=== PATIENT | female | born 1985 ===

== ENCOUNTER 2018-12-31 05:47 | Day surgery (SDC) | payer MEDICARE ==
[~2018-12-31] VITALS: Ht 157.5 cm; Wt 47.0 kg
[~2018-12-31 05:47] MED LIST: ACET-1757 PO; AMLO-150 PO; AMLO10TA8 PO; CALC-112 PO; FOLI-17 PO; FOLI20CA PO; HYDR-3237 PO; HYDR-3341 PO; HYDR-3342 PO; LABE100T6 PO; LABE200T6 PO; LACT1CAP4 PO; LOSA100T14 PO; LOSA25TA25 PO; SEVE2.4P PO; THIA50TA4 PO
[2018-12-31] MEDS ORDERED: BUPIVACAINE/PF 0.5% ONE (06:56)
[2018-12-31] MEDS ORDERED: HEPARIN 1,000 UNITS/ML, 10ML ONE (06:56)
[2018-12-31] MEDS ORDERED: THROMBIN 20,000 UNIT VIAL TP ONE (06:56)
[2018-12-31] MEDS ORDERED: PROTAMINE SULFATE 10 MG/ML, 5ML ONE (06:56)
[2018-12-31] MEDS ORDERED: EPINEPHRINE 1 MG/ML, 1ML ONE (06:57)
[2018-12-31] MEDS ORDERED: SODIUM CHLORIDE 0.9% 1,000 ML IV SCH (07:53)
[2018-12-31 08:02] VITALS: BP 156/93
[2018-12-31 08:18] LABS: BASOPHILS # (AUTO) 0.02 x10^3/uL (0-0.1); BASOPHILS % (AUTO) 1 % (0-1); EOSINOPHILS # (AUTO) 0.08 x10^3/uL (0-0.4); EOSINOPHILS % (AUTO) 2 % (1-7); LYMPHOCYTES # (AUTO) 0.61 x10^3/uL (1-3.4); LYMPHOCYTES % (AUTO) 18 % (22-44); MD NO; MEAN CORPUSCULAR HEMOGLOBIN 30.6 pg (27.0-34.8); MEAN CORPUSCULAR HGB CONC 31.9 g/dL (32.4-35.8); MEAN CORPUSCULAR VOLUME 95.8 fL (80-100); MEAN PLATELET VOLUME 7.6 fL (7.4-10.4); MONOCYTES % (AUTO) 12 % (2-9); NEUTROPHILS # (AUTO) 2.31 x10^3/uL (1.8-6.8); NEUTROPHILS % (AUTO) 68 % (42-75); PLATELET COUNT 168 x10^3/uL (130-400); RED BLOOD COUNT 3.56 x10^6/uL (3.82-5.3); RED CELL DISTRIBUTION WIDTH 13.9 % (9.6-15.2)
[2018-12-31 08:23] LABS: INTERNATIONAL NORMALIZED RATIO 0.97 (0.93-1.1); PROTHROMBIN TIME 10.2 Seconds (9.6-11.5)
[2018-12-31 08:27] LABS: HCG UR SG 1.012 (1.003-1.030)
[2018-12-31] MEDS ORDERED: PLEASE ENTER HEIGHT AND WEIGHT MC SCH (08:30)
[2018-12-31] MEDS ORDERED: MIDAZOLAM 1 MG/ML, 2ML ONE (08:38)
[2018-12-31] MEDS ORDERED: FENTANYL PF 100 MCG/2ML ONE ×2 (08:38→10:15)
[2018-12-31] MEDS ORDERED: CEFAZOLIN 1,000 MG ONE (08:46)
[2018-12-31] MEDS ORDERED: ONDANSETRON 2MG/ML, 2ML ONE (08:46)
[2018-12-31] MEDS ORDERED: DEXAMETHASONE 4 MG/ML, 1ML ONE (08:46)
[2018-12-31] MEDS ORDERED: PROPOFOL 10 MG/ML, 20ML ONE (08:46)
[2018-12-31] MEDS ORDERED: ONDANSETRON ODT 8 MG PO PRN (09:30)
[2018-12-31] MEDS ORDERED: ACETAMINOPHEN 325 MG TABLET PO PRN (09:30)
[2018-12-31] MEDS ORDERED: HYDROmorphone 2 MG/ML, 1ML IVPush PRN (09:30)
[2018-12-31] MEDS ORDERED: LABETALOL 5MG/ML, 20ML IV PRN (09:30)
[2018-12-31] MEDS ORDERED: ONDANSETRON 2MG/ML, 2ML IV PRN (09:30)
[2018-12-31] MEDS ORDERED: hydrALAzine 20 MG/ML, 1ML IV PRN (09:30)
[2018-12-31] MEDS ORDERED: OXYcodone 5 MG/5 ML ORAL.SOL UDC PO PRN (09:30)
[2018-12-31] MEDS ORDERED: PROMETHAZINE 25 MG SUPP PR PRN (09:30)
[2018-12-31] MEDS ORDERED: PROMETHAZINE 25 MG/ML, 1ML IV PRN (09:30)
[2018-12-31] MEDS ORDERED: OXYcodone 5 MG/5 ML ORAL.SOL UDC ONE (10:15)
[2018-12-31] MEDS: FENTANYL PF 100 MCG/2ML IV PRN ×2 (10:23→10:30)
[2018-12-31] MEDS ORDERED: hydrALAzine 20 MG/ML, 1ML ONE (10:34)
[2018-12-31] MEDS ORDERED: ACETAMINOPHEN 650 MG/20.3 ML UDC ONE (10:50)
== END 2018-12-31 13:20 | disposition home or self-care (01) ==
LOC: OUT 05:47
PROVIDERS: ATTEND Surgery Vascular Surgery
DX: T82.898A Other specified complication of vascular prosthetic devices, implants and grafts, initial encounter (principal); I12.0 Hypertensive chronic kidney disease with stage 5 chronic kidney disease or end stage renal disease; N18.6 End stage renal disease; Y83.8 Other surgical procedures as the cause of abnormal reaction of the patient, or of later complication, without mention of misadventure at the time of the procedure; Y92.89 Other specified places as the place of occurrence of the external cause
CPT/HCPCS: 36415; 36832; 81025; 85025; 85610; 85730; 93005; J0360; J0690; J1100; J1644; J2250; J2405; J2704; J3010; J0171; J1170; J2720